=== PATIENT | male | born 1970 | race African-American/Black ===

== ENCOUNTER 2022-09-01 07:48 | Observation (INO) ==
--- NOTE | 2022-08-28 11:23 | Anesthesiology Consultation ---
Date of Service August 28, 2022 Assessment & Plan (1) Encounter for pre-operative examination: - check CBC with diff and BMP STAT am DOS. - COVID screening: Per forest pathology professor on 08/28/2022: Juice Bond ordered am DOS. Chart Review Chart Review: Acceptable Risk for Surgery and Patient NOT seen in Pre Admission Testing History Surgery Operation Date: 09/01/22 10:40 Proposed Procedures p Left Total Shoulder Arthroplasty - Ariel Azar Arana MD Height/Weight Height: 6 ft Weight: 113.398 kg Allergies Allergy/AdvReac Type Severity Reaction Status Date / Time No Known Allergies Allergy Verified 08/24/22 14:38 Medications Home Medications Medication Instructions Recorded Confirmed Last Taken calcium polycarbophil 625 mg 1,250 mg PO BID 10/19/18 08/24/22 Unknown tablet (Fiber Laxative (calcium polycarbophil)) cetirizine 10 mg tablet (Zyrtec) 10 mg PO QAM 10/19/18 08/24/22 Unknown amlodipine 10 mg tablet 10 mg PO QAM 08/24/22 08/24/22 Unknown atenolol 25 mg tablet 25 mg PO QAM 08/24/22 08/24/22 Unknown benztropine 0.5 mg tablet 0.5 mg PO HS 08/24/22 08/24/22 Unknown capsaicin 0.025 % topical cream 1 applic topical QA 08/24/22 08/24/22 Unknown celecoxib 200 mg capsule (Celebrex) 200 mg PO BID PRN Pain 08/24/22 08/24/22 Unknown duloxetine 30 mg capsule,delayed 30 mg PO QPM 08/24/22 08/24/22 Unknown release duloxetine 60 mg capsule,delayed 60 mg PO QAM 08/24/22 08/24/22 Unknown release ezetimibe 10 mg tablet (Zetia) 10 mg PO QAM 08/24/22 08/24/22 Unknown lisinopril 20 1 tab PO QAM 08/24/22 08/24/22 Unknown mg-hydrochlorothiazide 25 mg tablet olanzapine 20 mg tablet 20 mg PO HS 08/24/22 08/24/22 Unknown olanzapine 5 mg tablet 5 mg PO QAM 08/24/22 08/24/22 Unknown pantoprazole 40 mg tablet,delayed 40 mg PO QAM 08/24/22 08/24/22 Unknown release polyethylene glycol 3350 17 17 g PO QAM PRN Constipation 08/24/22 08/24/22 Unknown gram/dose oral powder (Miralax) trazodone 100 mg tablet 100 mg PO HS 08/24/22 08/24/22 Unknown Past Medical History Medical History Allergic (intrinsic) eczema Anxiety Back pain Combined hyperlipidemia Constipation GERD (gastroesophageal reflux disease) Inmate in correctional facility [facility] Joint pain PTSD (post-traumatic stress disorder) Radiculopathy of lumbar region Reflux esophagitis Schizophrenia, chronic condition Social History Smoking Status: Former smoker tobacco type: cigarettes Do You Dip or Chew Tobacco: No Hx Alcohol Use: No Hx Substance Use: No substance use type: does not use Last Used Substance Other:: no known history Testing Electrocardiogram Date: 08/28/22 Sinus bradycardia, rate 59 bpm Chest X-Ray Date: 08/26/22 No radiographic evidence of acute cardiopulmonary disease
[~2022-09-01 07:48] MED LIST: ACETAMINOPHEN 500 MG TAB PO SCH; BUPIVACAINE 0.5 % 5 MG/1 ML PF 10ML VIAL ONE; CeleBREX 200 MG CAP PO SCH; LR 15ML/HR IV SCH; LR 60ML/HR IV SCH; ROPIVACAINE 0.5% HCL/PF 150 MG, BUPIVACAINE 0.75% MPF 20 ML, EPINEPHrine 0.15 MG, Ketor... INFIL SCH; Scopolamine 1 MG TDSY TD SCH; TRANEXAMIC ACID / 0.7% NACL 1,000 MG/100 ML BAG IV ONE; ceFAZolin 2000MG 2,000 MG/15 ML SYR IV SCH; oxyCODONE HCL 10 MG TABCR (OxyCONTIN) PO SCH
--- NOTE | 2022-09-01 08:21 | History & Physical Bridge Note ---
Date of Service September 01, 2022 History & Physical Bridge Note I have examined the patient, reviewed the History & Physical and in the interval since the performance of the History & Physical I have noted the following changes of clinical significance: no changes noted Patient is aware of the risks, is asymptomatic, and tested negative for COVID- 19.
[2022-09-01] MEDS ORDERED: TRANEXAMIC ACID / 0.7% NACL 1,000 MG/100 ML BAG IV ONE (09:00)
[2022-09-01 09:03] LABS: Basophils # (auto) 0.03 K/uL (0-0.2); Basophils % (auto) 0.5 %; Eosinophils # (auto) 0.26 K/uL (0-0.50); Hematocrit (blood only) 41.1 % (40.1-51.0); Hemoglobin 14.3 g/dl (14.0-18.0); Immature Granulocytes # (auto) 0.01 K/uL (0.00-0.02); Immature Granulocytes % (auto) 0.2 %; Lymphocytes # (auto) 2.18 K/uL (1.2-3.4); Lymphocytes % (auto) 33.1 %; Mean Corpuscular Hgb Conc 34.8 g/dL (32.0-36.0); Mean Corpuscular Volume 91.9 fL (80.0-100.0); Mean Platelet Volume 9.5 fL (9.4-12.4); Monocytes # (auto) 0.37 K/uL (0.24-0.82); Monocytes % (auto) 5.6 %; Neutrophils # (auto) 3.73 K/uL (1.4-6.5); Neutrophils % (auto) 56.6 %; Platelet Count 299 K/uL (130-400); RDW Coefficient of Variation 12.6 % (11.5-14.5); RDW Standard Deviation 42.4 fL (36.4-46.3); Red Blood Count 4.47 M/uL (4.63-6.08); White Blood Count 6.58 K/ul (4.8-10.8)
[2022-09-01 09:27] LABS: BUN Creatinine Ratio 10.5 (10-20); Calcium 8.9 mg/dl (8.5-10.1); Creatinine Clr Calc Pharmacy 119.8 ml/min; Est GFR (African American) 107.7 ml/min; Potassium 3.8 mmol/L (3.5-5.1)
[2022-09-01] MEDS ORDERED: ATROPINE SULFATE 0.1 MG/ML 10ML SYR IV PRN (11:14)
[2022-09-01] MEDS ORDERED: KETOROLAC 30 MG/ML VIAL IV PRN (11:14)
[2022-09-01] MEDS ORDERED: ONDANSETRON INJ 2 MG/ML 2 ML VIAL IV PRN ×2 (11:14→16:40)
[2022-09-01] MEDS ORDERED: MIDAZOLAM HCL 1 MG/ML 2ML VIAL ONE (11:14)
[2022-09-01] MEDS ORDERED: HYDROmorphone INJ 1 MG/ML SYRINGE IV PRN (11:14)
[2022-09-01] MEDS ORDERED: fentaNYL citrate 100 MCG/2 ML VIAL ONE (11:41)
[2022-09-01] MEDS ORDERED: ONDANSETRON INJ 2 MG/ML 2 ML VIAL ONE (11:41)
[2022-09-01] MEDS ORDERED: ORTHO JOINT ANESTHETIC ONE (11:41)
[2022-09-01] MEDS ORDERED: LIDOCAINE 2% MPF LOCAL 5 ML VIAL INFIL ONE (11:41)
[2022-09-01] MEDS ORDERED: PROPOFOL IV EMULSION 10 MG/ML 20 ML VIAL IV ONE (11:41)
[2022-09-01] MEDS ORDERED: PHENYLEPHRINE HCL 10 MG/ML VIAL ONE (13:02)
[2022-09-01] MEDS ORDERED: NEOSTIGMINE METHYLSULFATE 1 MG/ML 10ML VIAL ONE (13:19)
[2022-09-01] MEDS ORDERED: ePHEDrine sulfate 50 MG/ML AMP ONE (13:19)
[2022-09-01] MEDS ORDERED: GLYCOPYRROLATE 0.2 MG/ML VIAL ONE (13:19)
[2022-09-01] MEDS ORDERED: ROCURONIUM BROMIDE 10 MG/ML 5 ML VIAL IV ONE ×7 (15:07→15:23)
[2022-09-01] MEDS ORDERED: bisacodyL 10 MG SUPP PR PRN (16:40)
[2022-09-01] MEDS ORDERED: HYDROmorphone INJ 0.5 MG/0.5 ML SYR IV PRN (16:40)
[2022-09-01] MEDS ORDERED: NALOXONE HCL 0.4 MG/1 ML VIAL/CARP IV PRN (16:40)
[2022-09-01] MEDS ORDERED: MAGNESIUM HYDROXIDE SUSP 30 ML UDC PO PRN (16:40)
[2022-09-01] MEDS ORDERED: oxyCODONE HCL IR 5 MG TAB (IMMEDIATE RELEASE) PO PRN (16:40)
[2022-09-01] MEDS ORDERED: METOCLOPRAMIDE HCL INJ 5 MG/ML 2 ML VIAL IV PRN (16:40)
[2022-09-01] MEDS ORDERED: POLYETHYLENE (MIRALAX) 17 GM PACK PO PRN (16:51)
--- NOTE | 2022-09-01 16:57 | Post Operative Brief Note ---
Immediate Post Op Note v1 Date of Surgery September 01, 2022 Pre & Post Diagnosis Operation Date: 09/01/22 10:40 Pre-Op Diagnosis: Left Shoulder Osteoarthritis Post-Op Diagnosis: Left Shoulder Osteoarthritis I identified the patient and participated in the time-out.: Yes Procedure Operation Date: 09/01/22 10:40 Actual Procedures p Left Total Shoulder Arthroplasty, Cemented, with Distal Clavicle Excision(Left) - Ariel Arana MD Surgeon Ariel Arana MD Shaping Machine Tender Ying Beltre DO & Beatrice Barroso PA-C Estimated Blood Loss 200 Findings Consistent with Post-Op Diagnosis Fluids 2100 cc Specimens Left Humeral head Anesthesia Type General Regional Complications none
--- NOTE | 2022-09-01 16:58 | Operative Report ---
Post Operative Report Pre & Post Diagnosis Operation Date: 09/01/22 10:40 Pre-Op Diagnosis: Left Shoulder Osteoarthritis Post-Op Diagnosis: Left Shoulder Osteoarthritis I identified the patient and participated in the time-out.: Yes Procedure Operation Date: 09/01/22 10:40 Actual Procedures p Left Total Shoulder Arthroplasty, Cemented, with Distal Clavicle E xcision(Left) - Ariel Arana MD Surgeon Ariel Arana MD Dial Maker Ying Beltre DO & Beatrice Barroso PA-C Estimated Blood Loss 200 Findings See Below Severe degenerative changes left Glenohumeral joint with bone on bone and severe degenerative changes left AC Joint. Pre-op ROM Left shoulder: FF 100 deg; Abduction 85 degree; External Rotation 10 deg; Internal rotation 10 deg. Intra-op ROM Left shoulder: FF 160 deg; Abduction 155 degree; External Rotation 40 deg; Internal rotation 30 deg. Fluids 2100 cc Specimens Left Humeral head Anesthesia Type General Regional Complications none Indications Patient is a 51-year-old male who left shoulder OA, AC joint OA and has pain and decreased function. I recommended the patient undergo a left total shoulder arthroplasty and distal clavicle excision. The patient understands the risks of the operation including bleeding, infection, re-operation, damage to nerves and arteries, continued shoulder pain, shoulder stiffness, infection, and/or loosening of the components requiring revision surgery. The patient also understands the risks of heart attack, stroke, pulmonary embolus, and . The patient wished to proceed and the consent form was signed. Description of Procedure IMPLANTS: 1) Univers VaultLock Glenoid, Large (Arthrex) 2) Eclipse Trunion 47, Shoulder Implant 3) Eclipse Cage Screw, Medium 4) Eclipse Humeral Head 47/20, Shoulder implant 5) 2.6mm FiberTak with Labral tape x 3 (Arthrex) 6) 3.9 mm Biocomposite SwiveLock x 2 PROCEDURE:The patient was taken to the Operating Room and placed in the beach- chair position after administration of an interscalene block and general anesthesia. 2 g of intravenous Ancef were administered. The left shoulder was then prepped and draped in the standard sterile fashion. Sequential compression devices were placed on the legs. The multidisciplinary time-out identified the patient and the left shoulder as the correct shoulder. First, the deltopectoral incision was anesthetized with 15 cc of the joint cocktail. Sharp dissection was carried down to the deltopectoral interval. The cephalic vein was identified and protected medially. Blunt dissection was performed to separate the deltoid from the rotator cuff. The clavipectoral fascia was then incised and a self-retaining shoulder retractor was placed beneath the conjoined tendon and deltoid muscle, exposing the subscapularis tendon. The biceps tendon was identified in its groove and had degeneration and fluid. The biceps tendon was unroofed from its groove, and the rotator interval was split to the base of the coracoid. The Pectoralis Major tendon was released approximately 1-2 cm. The biceps and Pec were tagged with a 0 Vicryl. The biceps was released from the glenoid rim and near the pec. The 3 sisters were caute rized and the Subscapularis tendon was peeled off the humerus, exposing the humeral head as the arm was externally rotated. Traction sutures were placed in the Subscapularis with #2 FiberWire. Next, the humeral head was dislocated with the arm adducted, extended using a 90 degree Yang protecting the Supraspinatus and externally rotated and using Brown retractor to protect the deltoid and displace the humeral head anterior. A capsulotomy was carried down all the way around to the posterior aspect of the humeral head, taking care to stay on bone. We exposed the humeral osteophytes anterior, inferiorly. These osteophytes were removed with a rongeur to identify the medial calcar on the humeral neck. Next, using the Fixed angle cutting guide was placed and held with a guide pin to allow rotation so that the humeral osteotomy was performed in 30 degrees of retroversion using the guide that was pinned in place. Later an additional 2 mm cut was made to allow exposure of the glenoid. The 47 Trunnion fit best and the pins were impacted to hold the guide in place. The hand model was used in the standard fashion to prepare for the Eclipse screw. A centralizer was placed and using the guide pin the length of the screw was measured. A protective cap was placed over top of the osteotomy site. The glenoid was exposed with a Batman retractor anteriorly, 90 degree Yang posterior superiorly, and Blunt Yang posteriorly displacing the humeral head posterior and inferior. Using the VIP aiming guide based on preoperative planning a guide pin was placed centrally. Then the glenoid was reamed to bleeding surface. The remaining anterior osteophytes were removed with a rongeur. The central agricultural aircraft pilot hole was created with the drill. The guide for the Univers VaultLock was placed in the standard fashion centered using the central agricultural aircraft pilot hole. Once it was seated in the proper position, the 6mm drill was used to create the superior hole and the drill was left in place to further stabilize the guide. The 3 inferior hole were placed using the 4.5mm drill. The guide was removed and the glenoid broch was used to complete the glenoid preparation. The large trial fit well. Bone from the humeral head reaming was placed around the central peg in the standard fashion. Palacos cement was placed in the superior and inferior holes and a small amount was placed superiorly along the superior peg and a small amount inferior to the keel. The glenoid was placed in the standard fashion. After the cement had cured the glenoid was well secured. Our attention returned to the humeral head and the centralizer was placed followed by the Trunnion which was impacted into place in the standard fashion. The central screw was placed securing the Trunnion in place. Trial heads were placed and the 47/20 had excellent stability and 1+ translation anteriorly and posteriorly with good bounce back to the glenoid. Using the guide to avoid the Eclipse screw, 3 FiberTak anchors were placed for the medial row Subscapularis repair. The definitive humeral head was then impacted into place on the trunnion. Again, there was excellent stability and ROM forward flexion 160 degrees and Abduction 155 degrees. The Labral Tape from each anchor was passed through the Subscapularis tendon, wh ere 1 suture from each anchor would later be placed in the lateral row. The FiberWire sutures from each anchor were also passed the Subscapularis tendon. The Lateral row anchors were drilled along the bicipital groove and the 3 Labral Tape, I from each anchor was placed in each lateral row anchor in the standard fashion. TheFiberWire suture previously passed were then sequentially tied. The superior aspect of the subscapularis tendon was then closed with #2 FiberWire. The humeral head was no longer visible. The biceps was tenodesed to the pectoralis major tendon with #1 Vicryl. The pulsatile lavage was used to copiously irrigate the wound. The deltopectoral interval was re-approximated with #1-Vicryl, the subcutaneous tissue was closed with 3-0 Vicryl, and the skin was closed with ZipeLine and shield. The wounds were dressed with Silverlon. The sponge and needle count were correct. The patient was then transferred to the PACU in stable condition after applic ation of an abduction sling. POST-OP INSTRUCTIONS: The patient will be admitted for observation. Remain in the sling with abduction pillow for 4 weeks and another 2 weeks without the pillow. Will work with PT/OT. Pain control with Tylenol, NSAIDs, and breakthrough narcotics. I attest to the content of the Intraoperative Record and any orders documented therein. Any exceptions are noted below.
--- NOTE | 2022-09-01 17:50 | XRay Report ---
XR shoulder LT min 2V routine CLINICAL HISTORY: s/p shoulder arthroplasty TECHNIQUE: 2 views of the left shoulder were obtained. Comparison: None available at the time of this dictation. FINDINGS: Patient is status post shoulder arthroplasty with expected postsurgical changes including soft tissue swelling and subcutaneous emphysema. No periarticular lucency or hardware fracture is seen. IMPRESSION: Expected postoperative appearance status post placement of shoulder arthroplasty. ACT 112: Negative or not required by law. Electronically signed by: Dane Guzmán M.D. 09/01/2022 5:49 PM
--- NOTE | 2022-09-01 18:21 | Anesthesiology Progress Note ---
Date of Service September 01, 2022 Anesthesia Post Procedure Vital Signs Vital Signs: Temp Pulse Pulse Resp BP Pulse Ox O2 Del Method 09/01/22 18:00 97.3 F L 60 19 126/69 97 Room Air 09/01/22 17:50 58 L 19 136/67 99 Oxymask 09/01/22 17:40 57 L 19 124/58 L 99 Oxymask 09/01/22 17:30 60 15 131/62 100 Oxymask 09/01/22 17:22 97.3 F L 65 13 123/74 94 Oxymask 09/01/22 08:29 98.2 F 55 L 22 114/75 96 Room Air O2 Flow Rate 09/01/22 18:00 09/01/22 17:50 2 09/01/22 17:40 6 09/01/22 17:30 10 09/01/22 17:22 10 09/01/22 08:29 Transfer of Care Handoff Completed per policy Notes Mental Status: alert / awake / arousable and participated in evaluation Patient Amnestic to Procedure: Yes Nausea / Vomiting: adequately controlled Pain: adequately controlled Airway Patency, RR, SpO2: stable & adequate BP & HR: stable & adequate Hydration State: stable & adequate Anesthetic Complications: no major complications apparent and Pt Satisfied with anesthetic care
[2022-09-01] MEDS: SODIUM CHLORIDE 0.9% 1000ML 1,000 ML IV SCH (18:39)
[2022-09-01] MEDS: Scopolamine CHECK PATCH PLACEMENT SCH ×2 (18:39→23:13)
[2022-09-01] MEDS ORDERED: OLANZapine 20 MG TABLET PO SCH (21:00)
[2022-09-01] MEDS ORDERED: SENNA 8.6 MG TAB PO SCH (21:00)
[2022-09-01] MEDS ORDERED: BENZTROPINE MESYLATE 0.5 MG TAB PO SCH (21:00)
[2022-09-01] MEDS ORDERED: traZODone HCL 100 MG TAB PO SCH (21:00)
[2022-09-01] MEDS ORDERED: DULoxetine HCL 30 MG CAP PO SCH (21:00)
[2022-09-01] MEDS: ASPIRIN 81 MG ECTAB PO SCH (21:41)
[2022-09-01] MEDS: ASCORBIC ACID 500 MG TAB PO SCH (21:42)
[2022-09-01] MEDS: CALCIUM POLYCARBOPHIL 625MG TAB PO SCH (21:43)
[2022-09-01] MEDS: FERROUS GLUCONATE 324 MG TAB PO SCH (21:43)
[2022-09-01] MEDS: DOCUSATE SODIUM 100 MG CAP PO SCH (21:43)
[2022-09-01] MEDS: ACETAMINOPHEN 500 MG TAB PO SCH (21:43)
[2022-09-01] MEDS: ceFAZolin 2000MG 2,000 MG/15 ML SYR IV SCH (21:49)
[2022-09-02] MEDS: SODIUM CHLORIDE 0.9% 1000ML 1,000 ML IV SCH (02:55)
[2022-09-02] MEDS: ACETAMINOPHEN 500 MG TAB PO SCH ×2 (05:36→14:19)
[2022-09-02] MEDS: ceFAZolin 2000MG 2,000 MG/15 ML SYR IV SCH (05:36)
--- NOTE | 2022-09-02 06:09 | Orthopedic Progress Note ---
Date of Service September 02, 2022 Assessment & Plan (1) Osteoarthritis of left shoulder: Present on Admission?: Yes Plan POD #1 s/p Left TSA and distal clavicle excision, doing as well as expected. C/O sore throat, likely related to intubation and will give Cepacol spray and reassured the patient that symptoms would improve. Resume diet. Continue Sling with Abduction pillow for 4 weeks, then another 2 weeks without pillow. Continue pain control, Tylenol, Ibuprofen, and Oxycodone for break through. DVT prophylaxis: TEDs 3 weeks, foot pumps while in hospital. PT/OT. D/C planning. Change Silverlon prior to discharge. To remain in [facility] 4 weeks. F/U in office in 2 weeks Admission and Anticipated Discharge Date Admission Date: September 01, 2022 Subjective The shoulder pain I had before is gone. Patient was very appreciative. Was complaining of sore throat. Physical Exam Physical Exam: LUE: 2+ radial pulse, sensation to light touch intact to fingers, still diminished in thumb. Motor to Medial, radial, ulnar nerves intact. Dressing re-enforced overnight, otherwise intact. Results & Data ([facility]) Vital Signs (Past 12 Hours) Vital Signs Temp Pulse Resp BP Pulse Ox O2 Del Method 09/02/22 02:52 36.5 C 61 16 112/74 96 Room Air 09/01/22 21:50 36.6 C 66 15 123/81 96 Room Air 09/01/22 21:19 36.7 C 66 18 107/65 99 Room Air 09/01/22 20:21 36.6 C 67 20 116/75 99 Room Air 09/01/22 19:50 36.3 C L 66 16 116/65 97 Room Air 09/01/22 19:21 36.4 C L 68 105/64 94 Room Air 09/01/22 18:49 36.2 C L 62 16 110/68 94 Room Air 09/01/22 18:30 Room Air 09/01/22 18:21 36.3 C L 17 111/71 97 Room Air Laboratory Results Laboratory Results WBC 6.58 K/ul (4.8-10.8) 09/01/22 08:18 RBC 4.47 M/uL (4.63-6.08) L 09/01/22 08:18 Hgb 14.3 g/dl (14.0-18.0) 09/01/22 08:18 Hct 41.1 % (40.1-51.0) 09/01/22 08:18 MCV 91.9 fL (80.0-100.0) 09/01/22 08:18 MCH 32.0 pg (25.0-34.0) 09/01/22 08:18 MCHC 34.8 g/dL (32.0-36.0) 09/01/22 08:18 RDW Std Deviation 42.4 fL (36.4-46.3) 09/01/22 08:18 RDW Coeff of Aziza 12.6 % (11.5-14.5) 09/01/22 08:18 Plt Count 299 K/uL (130-400) 09/01/22 08:18 MPV 9.5 fL (9.4-12.4) 09/01/22 08:18 Immature Gran % (Auto) 0.2 % 09/01/22 08:18 Neut % (Auto) 56.6 % 09/01/22 08:18 Lymph % (Auto) 33.1 % 09/01/22 08:18 Lyman % (Auto) 5.6 % 09/01/22 08:18 Eos % (Auto) 4.0 % 09/01/22 08:18 Baso % (Auto) 0.5 % 09/01/22 08:18 Neut # (Auto) 3.73 K/uL (1.4-6.5) 09/01/22 08:18 Lymph # (Auto) 2.18 K/uL (1.2-3.4) 09/01/22 08:18 Lyman # (Auto) 0.37 K/uL (0.24-0.82) 09/01/22 08:18 Eos # (Auto) 0.26 K/uL (0-0.50) 09/01/22 08:18 Baso # (Auto) 0.03 K/uL (0-0.2) 09/01/22 08:18 Immature Gran # (Auto) 0.01 K/uL (0.00-0.02) 09/01/22 08:18 Sodium 139 mmol/L (136-145) 09/01/22 08:18 Potassium 3.8 mmol/L (3.5-5.1) 09/01/22 08:18 Chloride 105 mmol/L (98-107) 09/01/22 08:18 Carbon Dioxide 28 mmol/L (21-32) 09/01/22 08:18 Anion Gap 6 (3-11) 09/01/22 08:18 BUN 10 mg/dl (6-23) 09/01/22 08:18 Creatinine 0.95 mg/dl (0.6-1.4) 09/01/22 08:18 Est Cr Clr Drug Dosing 119.8 ml/min 09/01/22 08:18 Est GFR ( Amer) 107.7 ml/min 09/01/22 08:18 Est GFR (Non-Af Amer) 93.0 ml/min 09/01/22 08:18 BUN/Creatinine Ratio 10.5 (10-20) 09/01/22 08:18 Glucose 93 mg/dl (70-99(Fasting)) 09/01/22 08:18 Calcium 8.9 mg/dl (8.5-10.1) 09/01/22 08:18 SARS-CoV-2, RNA, NAAT NEGATIVE (NEGATIVE) 09/01/22 08:19 Blood Type O Positive 09/01/22 08:18 Antibody Screen NEGATIVE 09/01/22 08:18 Impressions Shoulder X-Ray 09/01/22 17:24 XR shoulder LT min 2V routine CLINICAL HISTORY: s/p shoulder arthroplasty TECHNIQUE: 2 views of the left shoulder were obtained. Comparison: None available at the time of this dictation. FINDINGS: Patient is status post shoulder arthroplasty with expected postsurgical changes including soft tissue swelling and subcutaneous emphysema. No periarticular lucency or hardware fracture is seen. IMPRESSION: Expected postoperative appearance status post placement of shoulder arthroplasty. ACT 112: Negative or not required by law. Electronically signed by: Dane Guzmán M.D. 09/01/2022 5:49 PM
[2022-09-02] MEDS ORDERED: COUGH DROP (SUGAR FREE) LOZ 24 LOZ/1 BOX BUCCAL PRN (07:08)
[2022-09-02 07:53] LABS: Hematocrit (blood only) 35.2 % (40.1-51.0); Mean Corpuscular Hemoglobin 31.9 pg (25.0-34.0); Mean Corpuscular Hgb Conc 34.1 g/dL (32.0-36.0); Mean Corpuscular Volume 93.6 fL (80.0-100.0); Mean Platelet Volume 9.4 fL (9.4-12.4); Platelet Count 237 K/uL (130-400); RDW Coefficient of Variation 12.7 % (11.5-14.5); RDW Standard Deviation 43.6 fL (36.4-46.3); Red Blood Count 3.76 M/uL (4.63-6.08)
[2022-09-02 08:32] LABS: Calcium 7.9 mg/dl (8.5-10.1); Potassium 4.2 mmol/L (3.5-5.1)
[2022-09-02 08:37] LABS: Creatinine Clr Calc Pharmacy 113.8 ml/min; Est GFR (African American) 101.3 ml/min; Est GFR (Non-African American) 87.4 ml/min
[2022-09-02] MEDS: Scopolamine CHECK PATCH PLACEMENT SCH (08:58)
[2022-09-02] MEDS: FERROUS GLUCONATE 324 MG TAB PO SCH (08:59)
[2022-09-02] MEDS ORDERED: ATENOLOL 25 MG TABLET PO SCH (09:00)
[2022-09-02] MEDS: CALCIUM POLYCARBOPHIL 625MG TAB PO SCH (09:00)
[2022-09-02] MEDS ORDERED: EZETIMIBE 10 MG TABLET PO SCH (09:00)
[2022-09-02] MEDS: DOCUSATE SODIUM 100 MG CAP PO SCH (09:00)
[2022-09-02] MEDS ORDERED: OLANZapine 5 MG TABLET PO SCH (09:00)
[2022-09-02] MEDS ORDERED: MULTIVITAMIN TAB PO SCH (09:00)
[2022-09-02] MEDS: ASCORBIC ACID 500 MG TAB PO SCH (09:00)
[2022-09-02] MEDS: ASPIRIN 81 MG ECTAB PO SCH (09:00)
[2022-09-02] MEDS ORDERED: CETIRIZINE HCL 10 MG TABLET PO SCH (09:00)
[2022-09-02] MEDS ORDERED: PANTOprazole 40 MG TAB PO SCH (09:00)
[2022-09-02] MEDS ORDERED: LISINOPRIL/HCTZ 20/25MG 1 TAB PO SCH (09:00)
[2022-09-02] MEDS ORDERED: amLODIPine BESYLATE 5 MG TAB PO SCH (09:00)
[2022-09-02] MEDS ORDERED: DULoxetine HCL 60 MG CAP PO SCH (09:00)
--- NOTE | 2022-09-02 11:10 | Discharge Summary ---
Date of Service September 02, 2022 Discharge Data Consultations 08/28/22 12:17 Consult Hospitalist Routine Procedures Performed Operation Date: 09/01/22 10:40 Actual Procedures p Left Total Shoulder Arthroplasty, Cemented, with Distal Clavicle Excision(Left) - Ariel Arana MD Hospital Course (1) Osteoarthritis of left shoulder: Patient was kept in [facility] for observation after undergoing an elective left total shoulder arthroplasty with Dr. Arana on September 01, 2022. Informed consent was obtained preoperatively. His surgery was performed with general anesthesia and a peripheral nerve block. He tolerated the procedure well without any intraoperative complications. Postoperatively he was placed in a shoulder abduction sling that is to remain on for 4 weeks after surgery. He was allowed out of bed, ambulating as tolerated throughout his room. He was encouraged to elevate his head of bed for comfort. He was given Tylenol, Celebrex, oxycodone for postoperative pain control. Silverlon dressings were applied postoperatively and did need reinforced throughout the evening of surgery. On postoperative day 1 his silver lines were changed and new Silverlon's were applied. He was tolerating a regular diet. His vital signs were stable. DVT prophylaxis included mobility, catherine stockings x 3 weeks, and AV impulse boots during his inpatient stay. He did complain of a sore throat on postoperative day 1 and Cepacol lozenges were provided for the patient. During his exam on postoperative day 1 he continued to have paresthesias on the dorsal aspect of his hand consistent with a peripheral nerve block he received preoperatively. He did not develop any postoperative nausea, vomiting, chest pain, shortness of breath. He was urinating without difficulty. He did not have a bowel movement during his inpatient stay. He participated in occupational and physical therapy. He was deemed safe for discharge back to his facility. Discharge instructions were reviewed and provided. A physician to physician sign out was performed by Dr. Arana. He was discharged back to [facility] on September 02, 2022.
--- NOTE | 2022-09-02 12:34 | Hospitalist Consultation ---
Date of Consultation September 02, 2022 Assessment & Plan (1) Osteoarthritis of left shoulder: Surgical care per primary service diet per primary service Pain control per primary service- rescue Narcan is availabe Bowel regime per primary service VTE prophylaxis per primary service IVF per primary service PT/OT per primary service (2) Anxiety: Patient with anxiety/depression/bi-polar and shcizophrenia - reports that his cymbalta was recently discontinued- if he is discharged today then defer back to PCP/shelter for meds - will hold current cymbalta medication if he remains in house (3) Schizophrenia, chronic condition: as above (4) Reflux esophagitis: Continue with PPI while use of NSAIDs- consider increasing to BID if symptoms occur/persist - currently controlled (5) HTN (hypertension): COntinue HCTZ/Lisinopril- renal indcies normal (6) HLD (hyperlipidemia): Continue Zetia for mixed hyperlipidemia Supervising Physician Co-Signing Physician Notes Attending Attestation - Chart reviewed in detail, care plan d/w CRISTÓBAL Tavera. I agree w/ the dias components of his documentation. Of note - I did not perform a bedside visit or physical exam. 51yo male - prisoner of [facility] - who underwent elective L total shoulder replacement by Dr Ariel Arana on 09/01/22. BPs stable since admission. CBC/BMP acceptable this am. Primary team plans to d/c back to shelter today. Other chronic medical problems appear stable. Bertrand Leblanc MD History of Present Illness Reason for Consultation: Medical managment Requesting Physician: Yasmeen Attending Physician: Ariel Arana MD History of Present Illness 51 YOM prisoner with no immediate records available for review. Patient is POD #1 from total LEFT shoulder Arthroplasty by Dr Arana. Patient reports history of anxiety, depression, and bi-polar, GERD, HTN, HLD. Patient evaluated in his room this morning. He is awake, but remains feeling "drowsy". He has never had surgical procedure before or received anesthesia before. He did work with PT/OT this morning and ambulated around the room. Tolerating diet and fluid intake. Voiding and has not passed flatulence yet. Overall he feels his pain is well controlled. Movement of his fingers are intact and without any CV/NV changes. Patient with D/C summary in this morning. Allergies Allergy/AdvReac Type Severity Reaction Status Date / Time No Known Allergies Allergy Verified 09/01/22 08:23 Home Medications Medication Instructions Recorded Confirmed Type calcium polycarbophil 625 mg 1,250 mg PO BID 10/19/18 09/01/22 History tablet (Fiber Laxative (calcium polycarbophil)) cetirizine 10 mg tablet (Zyrtec) 10 mg PO QAM 10/19/18 09/01/22 History amlodipine 10 mg tablet 10 mg PO QAM 08/24/22 09/01/22 History atenolol 25 mg tablet 25 mg PO QAM 08/24/22 09/01/22 History benztropine 0.5 mg tablet 0.5 mg PO HS 08/24/22 09/01/22 History duloxetine 30 mg capsule,delayed 30 mg PO QPM 08/24/22 09/01/22 History release duloxetine 60 mg capsule,delayed 60 mg PO QAM 08/24/22 09/01/22 History release ezetimibe 10 mg tablet (Zetia) 10 mg PO QAM 08/24/22 09/01/22 History lisinopril 20 1 tab PO QAM 08/24/22 09/01/22 History mg-hydrochlorothiazide 25 mg tablet olanzapine 20 mg tablet 20 mg PO HS 08/24/22 09/01/22 History olanzapine 5 mg tablet 5 mg PO QAM 08/24/22 09/01/22 History pantoprazole 40 mg tablet,delayed 40 mg PO QAM 08/24/22 09/01/22 History release polyethylene glycol 3350 17 17 g PO QAM PRN Constipation 08/24/22 09/01/22 History gram/dose oral powder (Miralax) trazodone 100 mg tablet 100 mg PO HS 08/24/22 09/01/22 History acetaminophen 500 mg tablet 1,000 mg PO Q8 #30 tabs 09/02/22 Rx (Tylenol Extra Strength) ascorbic acid (vitamin C) 500 mg 500 mg PO BIDM 14 days #28 tabs 09/02/22 Rx tablet (Vitamin C) aspirin 81 mg tablet,delayed 81 mg PO BID 30 days #60 tabs 09/02/22 Rx release celecoxib 200 mg capsule (Celebrex) 200 mg PO BID PRN Pain #30 caps 09/02/22 09/01/22 Rx docusate sodium 100 mg capsule 100 mg PO BID 14 days #28 caps 09/02/22 Rx ferrous gluconate 324 mg (38 mg 324 mg PO BIDM 14 days #28 tabs 09/02/22 Rx iron) tablet oxycodone 5 mg tablet 5 - 10 mg PO Q4H PRN severe pain 09/02/22 Rx (scale score 7-10) #20 tabs Patient History Medical History Allergic (intrinsic) eczema Anxiety Back pain Combined hyperlipidemia Constipation GERD (gastroesophageal reflux disease) [facility] Joint pain Osteoarthritis of left shoulder PTSD (post-traumatic stress disorder) Radiculopathy of lumbar region Reflux esophagitis Schizophrenia, chronic condition Social History Smoking Status: Former smoker Second Hand Exposure: No (unknown); Do You Dip or Chew Tobacco: No; Tobacco Cessation Education Requested by Patient: No Hx Alcohol Use: No Hx Substance Use: No Preferred Language: [place] Communication Ability: Effective Visual Impairment: No Limitations Hearing Ability: Normal [employer] Worker Required: No Beliefs That Will Affect Care: None marital status: single Current Living Situation: Other Current Living Situation Comment: [facility] SCI Assistive Devices: None Review of Systems Review of Systems: REVIEW OF SYSTEMS: Constitutional: No fever, sweats or chills Eyes: No diplopia, no worsening or blurred vision ENT: normal hearing, no trouble swallowing Respiratory: No cough, sputum, dyspnea at rest or on exertion Cardiovascular: No chest pain, tightness or palpitations Abdomen: No pain, nausea, vomiting, diarrhea or constipation Musculoskeletal: (+) right shoulder joint pain, No calf pain, swelling Neurologic: No weakness, numbness/tingling, or balance problems Psychiatric: (+) anxiety or depression, bi-polar Skin: No rash or itch Physical Exam Physical Exam: PHYSICAL EXAM: General: awake, alert, feels drowsy but is not obtunded or stuporous Head: Normocephalic, atraumatic ENT: PERRL, EOMI, no pharyngeal exudate, mucous membranes moist Neuro: AAO x 3, speech clear and appropriate, strength intact bilaterally 5/5, sensation intact and equal all extremities and dermatomes, no pronator drift Chest: equal rise and fall of the chest, no accessory muscle use, no heaves or thrills, Clear to auscultation, on room air, Cardiac: Regular rate and rhythm, skin warm dry, cap refill <3 seconds, peripheral pulses +2 no JVD, no murmur, no edema GI: NABS x 4 quadrants, soft, nontender to palpation, no rebound, guarding or tenderness : Spontaneously voiding, no pain, no CVA tenderness, MSK: Left arm in sling apparatus, incision intact with no drainage Psych: Normal mood and affect Skin: no rash or erythema Results & Data Results & Data ([facility]) Vital Signs (Past 12 Hours) Vital Signs Temp Pulse Resp BP Pulse Ox O2 Del Method 09/02/22 11:11 36.7 C 71 16 143/78 H 96 Room Air 09/02/22 09:10 65 122/79 09/02/22 07:38 36.7 C 56 L 16 133/68 98 Room Air 09/02/22 02:52 36.5 C 61 16 112/74 96 Room Air Laboratory Results Abnormal lab results 09/02/22 09/02/22 Range/Units 07:26 07:26 WBC 12.20 H (4.8-10.8) K/ul RBC 3.76 L (4.63-6.08) M/uL Hgb 12.0 L (14.0-18.0) g/dl Hct 35.2 L (40.1-51.0) % Glucose 107 H (70-99(Fasting)) mg/dl Calcium 7.9 L (8.5-10.1) mg/dl Medications Administered Acetaminophen (Acetaminophen 500 Mg Tab) 1,000 mg PO Q8 [facility] Stop: 10/01/22 21:59 Last Admin: 09/02/22 05:36 Dose: 1,000 mg Documented By: Admin: 09/01/22 21:43 Dose: 1,000 mg Documented By: EW Amlodipine Besylate (Amlodipine Besylate 5 Mg Tab) 10 mg PO QAM [facility] Stop: 10/02/22 08:59 Last Admin: 09/02/22 09:03 Dose: 10 mg Documented By: CS Ascorbic Acid (Ascorbic Acid 500 Mg Tab) 500 mg PO BIDM [facility] Stop: 10/01/22 16:59 Last Admin: 09/02/22 09:00 Dose: 500 mg Documented By: Admin: 09/01/22 21:42 Dose: 500 mg Documented By: EW Aspirin (Aspirin 81 Mg Ectab) 81 mg PO BID [facility] Stop: 10/01/22 20:59 Last Admin: 09/02/22 09:00 Dose: 81 mg Documented By: Admin: 09/01/22 21:41 Dose: 81 mg Documented By: EW Atenolol (Atenolol 25 Mg Tablet) 25 mg PO QAM [facility] Stop: 10/02/22 08:59 Last Admin: 09/02/22 09:11 Dose: 25 mg Documented By: CS Benztropine Mesylate (Benztropine Mesylate 0.5 Mg Tab) 0.5 mg PO HS [facility] Stop: 10/01/22 20:59 Last Admin: 09/01/22 21:43 Dose: 0.5 mg Documented By: EW Calcium Polycarbophil (Calcium Polycarbophil 625mg Tab) 1,250 mg PO BID [facility] Stop: 10/01/22 20:59 Last Admin: 09/02/22 09:00 Dose: 1,250 mg Documented By: Admin: 09/01/22 21:43 Dose: 1,250 mg Documented By: EW Cetirizine HCl (Cetirizine Hcl 10 Mg Tablet) [facility] [place] Stop: 10/02/22 08:59 Last Admin: 09/02/22 09:02 Dose: 10 mg Documented By: EREN Docusate Sodium (Docusate Sodium 100 Mg Cap) 100 mg PO BID [facility] Stop: 10/01/22 20:59 Last Admin: 09/02/22 09:00 Dose: 100 mg Documented By: Admin: 09/01/22 21:43 Dose: 100 mg Documented By: EW Duloxetine HCl (Duloxetine Hcl 30 Mg Cap) 30 mg PO QPM [facility] Stop: 10/01/22 20:59 Last Admin: 09/01/22 21:43 Dose: Not Given Documented By: EW Duloxetine HCl (Duloxetine Hcl 60 Mg Cap) 60 mg PO QAM [facility] Stop: 10/02/22 08:59 Last Admin: 09/02/22 09:09 Dose: Not Given Documented By: EREN Ezetimibe (Ezetimibe 10 Mg Tablet) [facility] [place] Stop: 10/02/22 08:59 Last Admin: 09/02/22 09:02 Dose: 10 mg Documented By: EREN Ferrous Gluconate (Ferrous Gluconate 324 Mg Tab) 324 mg PO BIDM [facility] Stop: 10/01/22 16:59 Last Admin: 09/02/22 08:59 Dose: 324 mg Documented By: Admin: 09/01/22 21:43 Dose: 324 mg Documented By: EW Lisinopril/HCTZ (Lisinopril/Hctz 20/25mg 1 Tab) 1 tab PO QAM [facility] Stop: 10/02/22 08:59 Last Admin: 09/02/22 09:01 Dose: 1 tab Documented By: EREN Menthol (Cough Drop (Sugar Free) Tim 24 Tim/1 Box) 1 tim BUCCAL PRN PRN PRN Reason: Sore Throat Stop: 10/02/22 07:07 Last Admin: 09/02/22 11:12 Dose: 1 tim Documented By: EREN Miscellaneous (Scopolamine Check Patch Placement) 1 each N/A QS [facility] Stop: 09/04/22 07:59 Last Admin: 09/02/22 08:58 Dose: 1 each Documented By: Admin: 09/01/22 23:13 Dose: 1 each Documented By: Admin: 09/01/22 18:39 Dose: 1 each Documented By: EREN Multivitamins (Multivitamin Tab) [facility] [place] Stop: 10/02/22 08:59 Last Admin: 09/02/22 09:03 Dose: 1 tab Documented By: EREN Olanzapine (Olanzapine 5 Mg Tablet) 5 mg PO [facility] Stop: 10/02/22 08:59 Last Admin: 09/02/22 09:02 Dose: 5 mg Documented By: EREN Olanzapine (Olanzapine 20 Mg Tablet) 20 mg PO [facility] Stop: 10/01/22 20:59 Last Admin: 09/01/22 21:42 Dose: 20 mg Documented By: MARY ALICE Pantoprazole Sodium (Pantoprazole 40 Mg Tab) [facility] [place] Stop: 10/02/22 08:59 Last Admin: 09/02/22 09:03 Dose: 40 mg Documented By: EREN Sennosides (Senna 8.6 Mg Tab) 17.2 mg PO [facility] Stop: 10/01/22 20:59 Last Admin: 09/01/22 21:43 Dose: 17.2 mg Documented By: MARY ALICE Trazodone HCl (Trazodone Hcl 100 Mg Tab) 100 mg PO HS [facility] Stop: 10/01/22 20:59 Last Admin: 09/01/22 21:43 Dose: 100 mg Documented By: MARY ALICE Discontinued Medications Acetaminophen (Acetaminophen 500 Mg Tab) 1,000 mg PO PREOP SHANNA Stop: 09/01/22 18:00 Last Admin: 09/01/22 08:59 Dose: 1,000 mg Documented By: CYNTHIA Celecoxib (Celebrex 200 Mg Cap) 200 mg PO PREOP [facility] Stop: 09/01/22 18:00 Last Admin: 09/01/22 08:59 Dose: 200 mg Documented By: CYNTHIA Ropivacaine 150 mg/Bupivacaine HCl 20 ml/Epinephrine HCl 0.15 mg/Ketorolac Tromethamine 30 mg/Dexamethasone 4 mg/ Ketamine HCl 10 mg/ Clonidine HCl 100 mcg/ Sodium Chloride 88.35 mls @ 0 mls/hr INFIL TODAY@0600 [facility]; Protocol Stop: 09/01/22 06:01 Last Admin: 09/01/22 16:54 Dose: 50 mls/hr Documented By: JUAN CARLOS Tranexamic Acid (Tranexamic Acid / 0.7% Nacl) 1,000 mg in 100 mls @ 600 mls/hr IV PREOP ONE Stop: 09/01/22 06:09 Last Infusion: 09/01/22 18:36 Dose: 0 mls/hr Documented By: Admin: 09/01/22 11:32 Dose: 600 mls/hr Documented By: CYNTHIA Tranexamic Acid (Tranexamic Acid / 0.7% Nacl) 1,000 mg in 100 mls @ 600 mls/hr IV ONE ONE Stop: 09/01/22 09:09 Last Infusion: 09/01/22 18:36 Dose: 0 mls/hr Documented By: Admin: 09/01/22 14:07 Dose: 600 mls/hr Documented By: JUAN CARLOS Lactated Ringer's (Lr) 1,000 mls @ 15 mls/hr IV .Q24H [facility] Stop: 09/02/22 05:59 Last Infusion: 09/01/22 12:10 Dose: 0 mls/hr Documented By: Admin: 09/01/22 09:00 Dose: 15 mls/hr Documented By: CYNTHIA Lactated Ringer's (Lr) 1,000 mls @ 60 mls/hr IV .[id number] [facility] Stop: 09/01/22 22:39 Last Admin: 09/01/22 09:00 Dose: Not Given Documented By: CYNTHIA Cefazolin Sodium (Ancef 2000mg) 2,000 mg in 15 mls @ 3.75 mls/min IV PREOP SHANNA; Protocol Stop: 09/01/22 18:00 Last Admin: 09/01/22 12:10 Dose: 3.75 mls/min Documented By: [id number] Sodium Chloride (Nss 1000ml) 1,000 mls @ 100 mls/hr IV .Q10H [facility] Stop: 09/02/22 06:00 Last Admin: 09/02/22 02:55 Dose: Not Given Documented By: MARY ALICE Infusion: 09/02/22 02:52 Dose: 0 mls/hr Documented By: MARY ALICE Admin: 09/01/22 18:39 Dose: 100 mls/hr Documented By: EREN Cefazolin Sodium (Ancef 2000mg) 2,000 mg in 15 mls @ 3.75 mls/min IV Q8H [facility]; Protocol Stop: 09/02/22 06:48 Last Admin: 09/02/22 05:36 Dose: 3.75 mls/min Documented By: MARY ALICE Admin: 09/01/22 21:49 Dose: 3.75 mls/min Documented By: MARY ALICE Miscellaneous (Ortho Joint Anesthetic ) Confirm Administered Dose 1 each .ROUTE .STK-MED ONE Stop: 09/01/22 11:42 Last Admin: 09/01/22 13:30 Dose: Not Given Documented By: SHERIF Oxycodone HCl (Oxycodone Hcl 10 Mg Tabcr (Oxycontin)) 10 mg PO PREOP SHANNA Stop: 09/01/22 18:00 Last Admin: 09/01/22 08:59 Dose: 10 mg Documented By: CYNTHIA Scopolamine (Scopolamine 1 Mg Tdsy) 1 mg TD PREOP SHANNA Stop: 09/01/22 18:00 Last Admin: 09/01/22 08:59 Dose: 1 mg Documented By: CYNTHIA PG Care Time/CCT Total # of Minutes Spent Total Time Spent with Patient: Total time spent is greater than 50% in coordination of care (as documented) at patient's floor/unit and/or counseling patient: Coding Level of Care Code INP/OBS CONSULT LVL 2, 35 MIN Diagnoses Osteoarthritis of left shoulder M19.012 Anxiety F41.9 Schizophrenia, chronic condition F20.9 Reflux esophagitis K21.0 HTN (hypertension) I10 HLD (hyperlipidemia) E78.5
== END 2022-09-02 14:59 ==
LOC: 3W 07:48 → ASU 07:48
DX: E78.5 Hyperlipidemia, unspecified; K21.9 Gastro-esophageal reflux disease without esophagitis; M19.012 Primary osteoarthritis, left shoulder; Z79.899 Other long term (current) drug therapy; Z87.891 Personal history of nicotine dependence; I10 Essential (primary) hypertension; Z79.82 Long term (current) use of aspirin